=== PATIENT | female | born 1970 | race Caucasian/White ===

== ENCOUNTER → 2020-08-30 | Outpatient (CLI) | payer OTHER ==
[~2020-08-30] MED LIST: PANT40TA3 PO
== END ==
LOC: LAB 08:23
PROVIDERS: ATTEND Nurse Anesthetist, Certified Registered
DX: Z01.812 Encounter for preprocedural laboratory examination (principal); K64.8 Other hemorrhoids; Z20.822 Contact with and (suspected) exposure to COVID-19
CPT/HCPCS: U0003; U0005

== ENCOUNTER → 2020-09-03 | Day surgery (SDC) | payer OTHER ==
[~2020-09-03] MED LIST changes: +BUPIVACAINE-EPI 0.25%-1:200000 MPF 30 ML VIAL. ONE; +IPRATRPIUM/ALBUTEROL 0.5/2.5MG 3 ML NEBU. NEB PRN; +KETAMINE HCL IN NACL, ISO-OSM 50 MG/5 ML SYRINGE ONE; +KETOROLAC 30 MG/ML VIAL. ONE; +LIDOCAINE 2% PF 5 ML VIAL. ONE; +MIDAZOLAM HCL PF 2 MG/2 ML VIAL. IV ONE; +MIDAZOLAM HCL PF 2 MG/2 ML VIAL. ONE; +NEOMY/BACITR/POLYMYXIN OINT PACKET. TP ONE; +ONDANSETRON PF 4 MG/2 ML VIAL. IV PRN; +ONDANSETRON PF 4 MG/2 ML VIAL. ONE; +PROPOFOL 10,000 MCG/ML (20ML) VIAL IV ONE; +SEVOFLURANE 31 TO 60 MINUTES. IH ONE
[2020-09-03] MEDS: IV RINGERS SOLUTION,LACTATED 1,000 ML IV SCH (11:08)
[2020-09-03] MEDS: ACETAMINOPHEN 500 MG TABLET PO ONE (11:13)
[2020-09-03] MEDS: BUPIVACAINE-EPI 0.25%-1:200000 MPF 30 ML VIAL. INJ ONE (12:15)
[2020-09-03] MEDS: NEOMY/BACITR/POLYMYXIN OINT PACKET. TP ONE (12:23)
--- NOTE | 2020-09-03 12:25 | PDOC4 ---
Operative Report DATE September 032020 at 1223 Preop Diagnosis Internal and external hemorrhoids Post-op Diagnosis Same Operation Performed Hemorrhoidectomy Patient is 50-year-old female with internal and external hemorrhoids with bleeding and pain. The procedure of hemorrhoidectomy was explained to the patient detail risk-benefit were also discussed including bleeding infection alternatives this procedure also discussed with patient who seemed to understand and gave both verbal and written consent to have the procedure performed. Mynor luis was taken to the operating room placed in the supine position general anesthesia was initiated once patient was sleeping and intubated she was placed in lithotomy positioning and her peritoneum was prepped and draped usual sterile fashion using Betadine scrub and solution. Area around the hemorrhoids in the 5 o'clock position were injected with quarter percent Marcaine with epinephrine hemorrhoids grasped with Allis clamp and excised using the harmonic scalpel. Hemostasis was controlled and the area dressed with triple antibiotic ointment 4 x 4's and mesh pants. Patient was placed back in the supine positioning awakened and extubated in the operating room taken to recovery in stable condition all sponge instrument needle counts listed as correct estimated blood loss 5 mL Surgeon Nic ANESTHESIA PROPOSED: GENERAL, LOCAL Blood Loss 5 mL Specimen Hemorrhoids Complications None SEGUNDO ASHBY MD Sep 03, 2020 12:25
--- NOTE | 2020-09-03 12:27 | DISCH ---
DISCHARGE INSTRUCTIONS-DC Condition on Discharge Condition on Discharge: Stable Activity after Discharge Activity Instructions for Disc: Avoid exertion Diet after Discharge Diet after Discharge: Regular Wound/Incision Care Other wound/incision instructi: Alexsandra shower in 24 hours Contacting the DRPranay after DC Call your doctor for: If your condition worsens Follow-Up Follow up with: Dr. Ashby in 2 weeks SEGUNDO ASHBY MD Sep 03, 2020 12:27
[2020-09-03 13:32] VITALS: BP 145/90
--- NOTE | 2020-09-06 17:07 | PATHOLOGY ---
[facility] Accession Number: [id number] . 01 Material submitted: . hemorrhoids - HEMORRHOID . 01 Clinical history: . HEMORRHOIDECTOMY . . 02 Diagnosis: Segments of skin and squamous mucosa and underlying fibromuscular tissue, hemorrhoidectomy: - Hemorrhoids. ([facility] 09/06/2020) [facility] 09/06/2020 1023 Local . 02 Electronically signed: . Fabiano Mensah MD, Pathologist NPI- [id number] . 01 Gross description: . The specimen is received in formalin, labeled "Ibis Migdalia, hemorrhoid". Received are three segments of epithelial covered tissue ranging in size from 1.6 x 1.3 x 1.1 cm to 2.5 x 2.0 x 1.5 cm in greatest dimensions. Sectioning reveals pink-armando to moderately vascularized cut surfaces. No distinct nodules or lesions are noted grossly. The specimen is submitted representatively in cassette A1. ([facility]; 09/05/2020) QA/QA 09/06/2020 1022 Local . 02 Pathologist provided ICD-10: K64.9 . 02 CPT . 683199 Specimen Comment: A courtesy copy of this report has been sent to [phone] Specimen Comment: [id number] Specimen Comment: Report sent to / DR RAYMOND Performed at: 01 [facility] [address] [facility] [address], [place] [id number] MD Kuldeep Washington MD Phone: [phone] Performed at: 02 [facility] [address] [place], [place] [id number] MD Fabiano Mensah MD Phone: [phone]
== END | disposition home or self-care (01) ==
LOC: SURG 10:29
PROVIDERS: ATTEND Surgery
DX: K64.8 Other hemorrhoids (principal); K64.4 Residual hemorrhoidal skin tags; Z79.899 Other long term (current) drug therapy; Z72.89 Other problems related to lifestyle; Z98.890 Other specified postprocedural states
CPT/HCPCS: 46255; J1885; J2001; J2250; J2405; J2704; J3010; J3490; J7120; 88304